=== PATIENT | female | born 1975 | race Hispanic/Latino ===

== ENCOUNTER 2023-04-13 01:41 | Emergency (ER) | payer OTHER ==
[~2023-04-13] VITALS: Ht 157.5 cm; Wt 80.7 kg
[2023-04-13] MEDS ORDERED: DEXAMETHASONE SOD PHOSPHATE 4 MG/ML 1ML VIAL IV ONE (02:00)
[2023-04-13] MEDS ORDERED: HYDROXYZINE 25 MG TABLET PO ONE (02:00)
[2023-04-13] MEDS ORDERED: FAMOTIDINE 20MG VIAL IV ONE ×2 (02:00→02:01)
[2023-04-13] MEDS ORDERED: DEXAMETHASONE SOD PHOSPHATE 10MG/ML 1ML VIAL ONE (02:01)
[2023-04-13 02:09] VITALS: BP 148/86; PULSE 88; RESP 14; O2SAT 98
[2023-04-13] MEDS ORDERED: HYDR50CA50 PO (03:09)
[2023-04-13] MEDS ORDERED: EPIN0.3P3 IJ (03:11)
[2023-04-13] MEDS ORDERED: CETI10CA5 PO (03:11)
== END 2023-04-13 03:19 | disposition home or self-care (01) ==
LOC: EDH 01:41
DX: T78.49XA Other allergy, initial encounter (principal); Z98.890 Other specified postprocedural states; X58.XXXA Exposure to other specified factors, initial encounter
CPT/HCPCS: 99284; 96374; 96375; J3490; J1100